=== PATIENT | male | born 1975 | race Caucasian/White ===

== ENCOUNTER → 2016-10-11 | Outpatient (CLI) | payer BC ==
[~2016-10-11] MED LIST: BSP15 PO; DILT-119 PO; FENO145T26 PO; LEVO75TA33 PO; LISI-461 PO; LORA-741 PO; PRLSR20 PO
--- NOTE | 2016-10-11 17:00 | DIAGNOSTIC IMAGING REPORT ---
(RENAL)RETROPERITON COMP HISTORY: 41 years-old Male ABN FINDINGS ON BLOOD CHEMISTRY COMPARISON: CT 07/15/2007 TECHNIQUE: Multiple real-time sonographic images of the kidneys and urinary bladder were obtained assessing grayscale appearance and color Doppler flow FINDINGS: Right kidney measures 10.7 cm in length and appears unremarkable without hydronephrosis, renal calculi or focal mass. Corticomedullary differentiation is within normal limits. Previously noted nonobstructing calculi in the inferior pole right kidney are not clearly seen. Left kidney is also unremarkable measuring 11.4 cm in length. No hydronephrosis or focal mass. Corticomedullary differentiation is within normal limits. There is a 2 mm punctate nonshadowing echogenicity noted within the interpolar left kidney. IMPRESSION: 1. Nonobstructing 2 mm calculus of the left kidney. 2. Previously seen nonobstructing calculi of the right kidney noted on CT study 07/15/2007 are not clearly identified. 3. No hydronephrosis. The above report was generated using voice recognition software. It may contain grammatical, syntax or spelling errors. Electronically signed by: Moises Shultz M.D. 10/11/2016 4:59 PM Dictated Date/Time: 10/11/2016 4:55 PM
== END | disposition home or self-care (01) ==
LOC: C.ULTR 16:18
PROVIDERS: ATTEND Family Medicine
DX: R79.89 Other specified abnormal findings of blood chemistry (principal)